=== PATIENT | female | born 1995 | race Caucasian/White ===

== ENCOUNTER 2017-08-02 13:46 | Day surgery (SDC) | payer OTHER ==
[2017-08-02 14:16] VITALS: BMI 35.3
[2017-08-02 15:02] LABS: Amnisure Test No Membranes Rupture (No Rupture)
--- NOTE | 2017-08-02 16:44 | PRG ---
DATE OF SERVICE: 08/02/2017 PRIMARY OB: Dr. Plascencia. CHIEF COMPLAINT: Leakage of fluid. HISTORY OF PRESENT ILLNESS: The patient is a 22-year-old G1, P0 female with an intrauterine pregnan cy at 40 weeks, who reports today that she has been having some leakage of fluid and thought perhaps she had broken her water. She says that it has gotten her panties away and she feels like it is l ittle bit come down to her leg. She denies any bleeding. She denies any contractions. She denies any illness, fever, fall, headache, chest pain, shortness of breath, any significant nausea or vomit ing, any new rashes, any diarrhea or constipation, hip problems or knee problems. She denies urinar y urgency. PAST MEDICAL HISTORY: Allergic rhinitis or seasonal allergies, heartburn. PAST SURGICAL HISTORY: Negative. OBSTETRIC HISTORY: This is her first . SOCIAL HISTORY: Denies drug, alcohol or tobacco use. ALLERGIES: PENICILLIN. MEDICATIONS: vitamins and omeprazole. OB LABORATORY DATA: HIV negative, hepatitis B surface antigen negative, RPR is negative, quad scree n is negative. GBS is negative. REVIEW OF SYSTEMS: Per HPI. PHYSICAL EXAMINATION: VITAL SIGNS: Blood pressure is 126/71, heart rate of 64, respiratory rate of 16, temperature 98.5. GENERAL: She appears to be in no acute distress. She is alert and oriented, and cooperative and pl easant to interact with. HEENT: Normocephalic, atraumatic. LUNGS: Clear to auscultation bilaterally. HEART: Regular rate and rhythm. ABDOMEN: Soft and gravid and nontender. EXTREMITIES: Nontender with some minimal edema. CERVICAL EXAM: Per nursing staff, she is 1.5 cm dilated, 70% effaced, -2 station. heart tracing performed for leakage of fluid for approximately 1 hour. Baseline is in the 140 s with moderate long-term variability, positive accelerations, no decelerations. The tocometer show s some irregular contractions but nothing felt by the patient. AmniSure test is negative. ASSESSMENT AND PLAN: The patient is a 22-year-old G1, P0 female with an intrauterine at 4 0 weeks, who presented with complaint of leakage of fluid. There is no evidence of rupture of membr anes at this time. Cervix is unlabored and the patient is GBS negative with a reactive NST. The rebeca hodge has been given term precautions. She is scheduled to return on Wednesday for induction of labor if she does not enter labor on her own.
== END 2017-08-02 15:17 | disposition home or self-care (01) ==
LOC: L&D/OP 13:46
PROVIDERS: ATTEND Family Medicine
DX: O26.893 Other specified pregnancy related conditions, third trimester (principal); Z88.0 Allergy status to penicillin; Z79.899 Other long term (current) drug therapy; Z3A.40 40 weeks gestation of pregnancy
CPT/HCPCS: 84112

== ENCOUNTER 2017-08-05 00:07 | Inpatient (IN) | payer OTHER ==
[2017-08-05 00:35] VITALS: BMI 35.3
[2017-08-05 01:18] LABS: Amnisure Test RUPTURE DETECTED (No Rupture)
[2017-08-05] MEDS ORDERED: Ibuprofen 800 MG TAB PO PRN (01:35)
[2017-08-05] MEDS ORDERED: Ondansetron HCl/PF 4 MG/2 ML Vial IVP PRN ×3 (01:35→21:42)
[2017-08-05] MEDS ORDERED: LR / Pitocin 40 units/1000 ml 1,000 ML IV PRN (01:35)
[2017-08-05] MEDS ORDERED: Lidocaine 1% (PF) 30 ML VIAL SC PRN (01:35)
[2017-08-05] MEDS ORDERED: HYDROcodone/Acetaminophen 5/325 mg Tablet PO PRN ×4 (01:35→21:42)
[2017-08-05 02:22] LABS: Hematocrit 33.9 % (36.0-47.0); Mean Platelet Volume 11.4 fL (7.4-10.4); Red Blood Cell (RBC) Count 4.04 mill/uL (4.00-5.20); White Blood Cell (WBC) Count 15.7 thou/uL (4.8-10.8)
[2017-08-05] MEDS ORDERED: Fentanyl 4 mcg/Marc 0.1% Cadd 100 ML ONE (02:22)
[2017-08-05] MEDS ORDERED: ePHEDrine/0.9% NaCl/PF SYRINGE 50 mg/10 ml SLOW IVP PRN (03:02)
[2017-08-05] MEDS ORDERED: Eucerin (Mineral Oil/Petrolatum,White) 30 gm Jar TOP PRN (03:02)
[2017-08-05] MEDS ORDERED: Lactated Ringer's 500 ML IV PRN (03:02)
[2017-08-05] MEDS ORDERED: Promethazine HCl 25 MG/ML VIAL IM PRN (03:02)
[2017-08-05] MEDS ORDERED: Acetaminophen 325 MG TAB PO PRN (03:02)
[2017-08-05] MEDS ORDERED: Naloxone HCl 0.4 mg/ml Vial IVP PRN ×2 (03:02)
[2017-08-05] MEDS ORDERED: diphenhydrAMINE HCl 50 MG/ML 1 ML VIAL IVP PRN (03:02)
[2017-08-05] MEDS ORDERED: Communication Order-Pharmacy FS SCH (03:15)
[2017-08-05] MEDS: Lactated Ringer's 1,000 ML IV SCH ×3 (03:31→05:25)
[2017-08-05] MEDS: Fentanyl 4mcg/Marcaine 0.1% Cassette 100 ML EPIDURAL SCH ×3 (03:32→16:41)
[2017-08-05] MEDS: Dextrose 5%-Lactated Ringers 1,000 ML IV SCH ×2 (05:24→10:21)
[2017-08-05] MEDS ORDERED: Lactated Ringer's 1,000 ML IV PRN (06:01)
--- NOTE | 2017-08-05 07:22 | PDOC.LDHP ---
Labor and Delivery H&P Chief complaint: contractions HPI: 22yo at 40w3d c/o painful contractions and LOF. Good FM, no VB Current gestational age (weeks): 40 Dating criteria: last menstrual period Grav: 1 Para: 0 Current complications: none Abnormal US findings: No Past Medical History: denies Current medications: pre-cinthia vitamins Previous surgical history: none Allergies/Adverse Reactions: Allergies Allergy/AdvReac Type Severity Reaction Status Date / Time penicillin G Allergy Intermediate Hives Verified 08/05/17 00:26 Social history: none - Physical Exam Vital signs reviewed and normal: yes General: NAD Heart: RRR Lungs: CTAB Abdomen: gravid Extremeties: no edema FHT: category 1 - Vaginal Exam cm dilated: 5 Effacement: 100% Station: 0 - OB Labs Blood type: A RH: positive HIV: negative RPR: negative HEPSAg: negative 1 hour GCT: negative GBS: negative Additional Labs: RubImm - Assessment L&D Assessment: term patient in labor - Plan Plan: admit to L&D, labor augmentation if indicated, informed consent obtained, anesthesia consult for pain management
--- NOTE | 2017-08-05 14:14 | PDOC.LDPN ---
Labor & Delivery Progress Note - Subjective Subjective: vaginal pressure - Objective Vital signs reviewed and normal: yes General: NAD Uterine fundus: non tender Dilation: 8 Effacement: 100% Station: 2+ FHT: category 1, early decelerations [place] contractions every: q4min - Assessment (1) Term Code(s): Z34.80 - ENCOUNTER FOR SUPRVSN OF NORMAL , UNSP TRIMESTER Current Visit: Yes Status: Acute Plan: continue plan of care -: In active labor, now arrested from last check. Will start pitocin. FHT cat 1 with jenny. Working epidural.
[2017-08-05] MEDS ORDERED: LR 500 ML/Oxytocin 10 units 500 ML ONE (14:16)
[2017-08-05] MEDS ORDERED: LR 500 ML/Oxytocin 10 units 500 ML IV SCH (14:30)
--- NOTE | 2017-08-05 17:50 | PDOC.OPDEL ---
OB Operative/Delivery Note Delivery Dr/Surgeon: Thais Assist: n/a Pre-Delivery Diagnosis: active labor Procedure/Post Delivery Dx: spontaneous vaginal delivery Weeks gestation: 40 Anesthesia: epidural - Findings A Sex: female Weight: 7 lb 8 oz - 5 min: 9 - 10 min: 9 - Additional Findings/Plan Placenta delivered: spontaneous Repaired Obstetrical Laceration: left labial (repaired with 3-0 vicryl in running fashion) Estimated blood loss: 300 Post delivery plan: routine recovery
[2017-08-05] MEDS ORDERED: Lidocaine 2% PF 10 ML AMP (For Epidural Use) ONE (19:34)
[2017-08-05] MEDS ORDERED: LR / Pitocin 40 units/1000 ml 1,000 ML IV SCH (21:42)
[2017-08-05] MEDS ORDERED: Preparation H Ointment 28 GM TUBE PR PRN (21:42)
[2017-08-05] MEDS ORDERED: Benzocaine/Menthol 20-0.5% 60 ML CAN TOP PRN (21:42)
[2017-08-05] MEDS ORDERED: Adacel (T-DAP) 0.5 ML VIAL IM ONE (21:42)
[2017-08-05] MEDS ORDERED: Milk Of Magnesia 30 ML UDCUP PO PRN (21:42)
[2017-08-05] MEDS ORDERED: Bisacodyl 10 MG SUPP PR PRN (21:42)
[2017-08-05] MEDS ORDERED: Lanolin Ointment 7 GM TUBE TOP PRN (21:42)
[2017-08-05] MEDS ORDERED: diphenhydrAMINE HCl 25 MG CAP PO PRN (21:42)
[2017-08-05] MEDS: Docusate (Surfak) 240 MG CAP PO SCH (22:56)
[2017-08-05] MEDS: Ibuprofen 800 MG TAB PO SCH (22:56)
[2017-08-06] MEDS: Ibuprofen 800 MG TAB PO SCH ×3 (06:28→21:19)
[2017-08-06] MEDS: Dextrose 5%-Lactated Ringers 1,000 ML IV SCH (07:06)
[2017-08-06] MEDS: Ferrous Sulfate 325 MG TAB PO SCH ×2 (08:00→17:14)
[2017-08-06] MEDS: Prenatal Vitamin 1 TAB PO SCH (08:41)
[2017-08-06] MEDS: Docusate (Surfak) 240 MG CAP PO SCH ×2 (08:41→21:19)
[2017-08-06] MEDS: Lactated Ringer's 1,000 ML IV SCH (10:39)
--- NOTE | 2017-08-06 12:58 | PDOC.PP ---
Post Progress Note Post Day #: 2 PO intake tolerated: yes Flatus: yes Ambulation: yes Vital Signs (12 hours) Temp Pulse Resp BP Pulse Ox 08/06/17 11:38 98.4 F 86 18 111/57 L 08/06/17 11:27 98.1 F 60 20 08/06/17 08:00 98.1 F 60 20 118/61 99 08/06/17 03:45 97.5 F L 82 18 133/72 Weight Weight 193 lb - Physical Examination General: NAD Cardiovascular: RRR Respiratory: clear to ausculation bilateral Abdominal: no distention, appropriately TTP Fundus firm & at: umb Skin: no rash Psychiatric: normal affect Result Diagrams: 08/05/17 02:11 Additional Labs: Post Labs Blood Type A POSITIVE 08/05/17 02:11 Hep Bs Antigen Non-Reactive S/CO (NonReactive) 08/05/17 02:11 (1) Term Code(s): Z34.80 - ENCOUNTER FOR SUPRVSN OF NORMAL , UNSP TRIMESTER Status: Acute - Assessment/Plan VSSAF Doing well pain controlled lochia < menses Rhpos RImm Cont PP care.
[2017-08-07] MEDS: Ibuprofen 800 MG TAB PO SCH ×2 (06:14→13:27)
[2017-08-07 07:52] VITALS: BP 131/70; TEMP 97.6
[2017-08-07] MEDS: Ferrous Sulfate 325 MG TAB PO SCH (08:41)
[2017-08-07] MEDS: Docusate (Surfak) 240 MG CAP PO SCH (08:41)
[2017-08-07] MEDS: Prenatal Vitamin 1 TAB PO SCH (08:41)
== END 2017-08-07 14:15 | disposition home or self-care (01) | DRG 775 ==
LOC: L&D/OP 00:07 → L&D 01:42 → 3SE 21:18
PROVIDERS: ADMIT Student in an Organized Health Care Education/Training Program; ATTEND Student in an Organized Health Care Education/Training Program
PROC: 10E0XZZ Delivery of Products of Conception, External Approach (ICD-10-PCS; principal; 2017-08-05)
PROC: 0HQ9XZZ Repair Perineum Skin, External Approach (ICD-10-PCS; 2017-08-05)
PROC: 4A0HXCZ Measurement of Products of Conception, Cardiac Rate, External Approach (ICD-10-PCS; 2017-08-05)
PROC: 3E0P3VZ Introduction of Hormone into Female Reproductive, Percutaneous Approach (ICD-10-PCS; 2017-08-05)
DX: O76 Abnormality in fetal heart rate and rhythm complicating labor and delivery (principal); O70.0 First degree perineal laceration during delivery; Z37.0 Single live birth; Z3A.40 40 weeks gestation of pregnancy
CPT/HCPCS: 36415; 84112; 85027; 86780; 86900; 86901; 87340; J2001; J2405; J2550; J7120